=== PATIENT | female | born 1985 | race Hispanic/Latino ===

== ENCOUNTER 2017-08-18 12:24 | Emergency (ER) | payer OTHER, SELFPAY ==
[2017-08-18] MEDS ORDERED: predniSONE 20 MG TAB ONE (13:29)
--- NOTE | 2017-08-18 14:25 | RAD ---
PA AND LATERAL VIEWS OF CHEST: Date: 08/18/17 HISTORY: Dyspnea, cough, congestion, and wheezing. FINDINGS: Comparison made with exam of 05/18/17. The heart size is normal. The lungs are well expanded without focal areas of consolidation, pneumoth orax, or pleural effusions. No acute osseous abnormalities are seen. IMPRESSION: No radiographic evidence of acute cardiopulmonary process. POS: [facility]
== END 2017-08-18 15:39 | disposition home or self-care (01) ==
LOC: ERS 12:24
DX: J45.901 Unspecified asthma with (acute) exacerbation (principal); I10 Essential (primary) hypertension; E11.9 Type 2 diabetes mellitus without complications; F41.9 Anxiety disorder, unspecified; F32.9 Major depressive disorder, single episode, unspecified; Z87.891 Personal history of nicotine dependence; Z79.84 Long term (current) use of oral hypoglycemic drugs; Z79.899 Other long term (current) drug therapy
CPT/HCPCS: 71020; 94640; J7506; J7620

== ENCOUNTER 2017-08-29 06:13 | Emergency (ER) | payer SELFPAY ==
--- NOTE | 2017-08-29 08:06 | RAD ---
LEFT HIP TWO VIEWS: HISTORY: Left hip pain radiating down the leg. FINDINGS: No fracture, dislocation, or bony destruction is identified. POS: [facility]
[2017-08-29] MEDS ORDERED: Ketorolac Tromethamine 60 MG/2 ML VIAL ONE (08:17)
== END 2017-08-29 08:35 | disposition home or self-care (01) ==
LOC: ERS 06:13
DX: M70.72 Other bursitis of hip, left hip (principal); F32.9 Major depressive disorder, single episode, unspecified; F41.9 Anxiety disorder, unspecified; J45.909 Unspecified asthma, uncomplicated; E11.9 Type 2 diabetes mellitus without complications; Z79.84 Long term (current) use of oral hypoglycemic drugs; Z79.899 Other long term (current) drug therapy; Z87.891 Personal history of nicotine dependence
CPT/HCPCS: 96372; J1885

== ENCOUNTER 2017-10-12 15:42 | Emergency (ER) | payer SELFPAY ==
--- NOTE | 2017-10-12 17:36 | RAD ---
CHEST TWO VIEWS 10/12/17 HISTORY: Cough. Fever. COMPARISON: 08/18/17. FINDINGS: Normal cardiac silhouette. The pulmonary vessels and hilum are normal. Costophrenic angles are clear. Patchy interstitial opacities in the lung bases. Adequate aeration of the upper lungs. No pneumothor ax or osseous abnormalities. IMPRESSION: Patchy interstitial opacity in the lung bases. Bibasilar infiltrate is suspected. Continued surveilla nce. POS: [facility]
[2017-10-12] MEDS ORDERED: Albuterol Sulfate 2.5 mg/3 ml Neb ONE ×2 (18:23)
== END 2017-10-12 19:04 | disposition home or self-care (01) ==
LOC: ERS 15:42
DX: J18.9 Pneumonia, unspecified organism (principal); I10 Essential (primary) hypertension; E11.9 Type 2 diabetes mellitus without complications; J45.909 Unspecified asthma, uncomplicated; F41.9 Anxiety disorder, unspecified; F32.9 Major depressive disorder, single episode, unspecified; Z87.891 Personal history of nicotine dependence
CPT/HCPCS: 71020; 94640; J7611; J7620

== ENCOUNTER 2017-10-25 07:59 | Emergency (ER) | payer SELFPAY ==
--- NOTE | 2017-10-25 08:38 | RAD ---
EXAM: ONE VIEW CHEST HISTORY: Pneumonia. COMPARISON: 05/18/2017, 10/12/2017. FINDINGS: Normal cardiac silhouette. Pulmonary vessels and hilum are normal. No consolidation or mass. No pn eumothorax or osseous abnormalities. IMPRESSION: No acute cardiopulmonary process. POS: [facility]
[2017-10-25] MEDS ORDERED: methylPREDNISolone Sod Succ/PF 125 MG/2 ML VIAL ONE (10:10)
[2017-10-25] MEDS ORDERED: Water For Inject, Bacteriostat 30 ML ONE (10:10)
[2017-10-25] MEDS ORDERED: Magnesium Sulfate 2 GM/100 ML BAG ONE (10:10)
[2017-10-25 10:31] LABS: #Basophils 0.1 thou/uL (0.0-0.2); #Eosinphils 0.5 thou/uL (0.0-0.7); #Lymphocytes 3.1 thou/uL (1.20-3.40); #Monocytes 0.8 thou/uL (0.11-0.59); #Neutrophils 5.2 thou/uL (1.40-6.50); %Basophils 0.9 % (0.0-1.0); %Eosinophils 4.8 % (0.0-10.0); %Lymphocytes 31.9 % (21.0-51.0); %Monocytes 8.6 % (0.0-10.0); Mean Platelet Volume 7.6 fL (7.4-10.4); Red Blood Cell (RBC) Count 4.88 mill/uL (4.20-5.40); White Blood Cell (WBC) Count 9.7 thou/uL (4.8-10.8)
[2017-10-25 10:40] LABS: Anion Gap 12 mmol/L (10-20); BUN (Urea Nitrogen) 5 mg/dL (7.0-18.7); Calc. Creatinine Clearance 0 mL/min (70-130); Calcium 8.7 mg/dL (7.8-10.44); Carbon Dioxide 24 mmol/L (22-29); Chloride 103 mmol/L (98-107); Estimated GFR-MDRD 86
--- NOTE | 2017-10-28 22:07 | CON ---
ER CONSULTATION NOTE DATE OF CONSULTATION: 10/25/2017 REQUESTING PHYSICIAN: Dr. Celia Chavez. REASON FOR CONSULTATION: Fever and pneumonia. HISTORY OF PRESENT ILLNESS: Ms. Mackenzie is a 32-year-old female with history of diabetes, hypertensi on, asthma, anxiety and severe obesity, who presents to the Emergency Department for evaluation of fe olive at home. She states that she was diagnosed with pneumonia a while back. She got treated with azithromycin and seemed to get better, but the morning of presentation, had some increased shortness of breath and wh eezing and fever to 101-101.9 at home. She came to the Emergency Department for evaluation and was s atting 90% on room air. She received nebs, steroids and antibiotics, she was then satting well on ro om air and is 93% to 98% on room air. Her labs were normal, chest x-ray negative; however, a few wee ks ago, it did show I believe a left lower lobe infiltrate. She was concerned that her pneumonia may be coming back and was treated by being admitted. She denies any chest pain, no shortness of breath at present. No nausea or vomiting. She does have a lot of upper respiratory congestion. No headache or visual changes. PAST MEDICAL HISTORY: 1. Diabetes mellitus type 2. 2. Hypertension. 3. Asthma. 4. Trazodone. 5. Anxiety and depression. PAST SURGICAL HISTORY: Include wisdom teeth removal. HOME MEDICATIONS: 1. Symbicort 80/4.5 one puff daily. 2. Metformin 1000 mg p.o. b.i.d. 3. Lexapro 5 mg daily. 4. Glimepiride 10 mg daily. 5. Glipizide 5 mg daily. 6. Albuterol MDI p.r.n. 7. Janumet daily. 8. Tramadol 50 mg as needed. 9. Naproxen as needed. ALLERGIES: ENALAPRIL. FAMILY HISTORY: Negative for clotting or bleeding. No immune dysfunction, no early heart disease. SOCIAL HISTORY: History significant for cocaine and marijuana in the past, but has not had in over a year. She did used to smoke regular tobacco and uses rare alcohol. REVIEW OF SYSTEMS: A 10-point review of systems was performed, negative for all other systems except as stated per HPI. PHYSICAL EXAMINATION: VITAL SIGNS: Temperature 98.3, pulse 93, blood pressure 116/84, respiratory rate 16 and satting 93% on room air. GENERAL: She is awake. She is alert. She is oriented x3. She is a well-developed, obese white fem yennifer, who appears to be in no distress. HEENT: Normocephalic and atraumatic. Pupils are equal and reactive bilaterally, mucous members are moist. She has no thrush. She does have a significant postnasal drip and cobblestoning in the poste rior oropharynx. NECK: Supple. There is no lymphadenopathy, JVD or thyromegaly. LUNGS: Clear. She has good air movement. There is no prolonged expiratory phase. No wheezes. She has no crackles. CARDIOVASCULAR: She has normal cardiac and regular. She has normal S1 and S2. I do not appreciate murmurs. ABDOMEN: Obese. It is nontender and nondistended with good bowel sounds. She has no rebound, rigid ity or guarding. I cannot palpate internal organs. EXTREMITIES: Showed no cyanosis or clubbing. Trace pedal edema. SKIN: Warm, moist and well perfused. She has no rashes, no lesions. MUSCULOSKELETAL: Normal to inspection without any inflamed arthritic joints. She has no palpable ef fusions. NEUROLOGIC: Cranial nerves II-XII are grossly intact. She has 5/5 strength. She has normal speech. She has normal gait. She has no deficits. LABORATORY DATA: Basic metabolic profile shows sodium of 135, potassium 3.9, chloride 103, bicarb 24 , BUN 5, creatinine 0.77, glucose elevated at 327 and calcium of 8.7. CBC showed a white count of 9. 1, hemoglobin 15.3, hematocrit of 46.0 and platelets of 266,000. IMAGING DATA: The chest x-ray showed no acute cardiopulmonary disease. ASSESSMENT AND PLAN: 1. Upper respiratory infection. The patient has a significant postnasal drip and a posterior cobble stoning. 2. Acute asthma exacerbation, mild, and seems to be under very good control. 3. Diabetes mellitus type 2, with hyperglycemia. 4. Hypertension, controlled. 5. Anxiety/depression. I offered the patient options of either observation for steroids, nebs and antibiotics and watching o vernight, or to go home with oral antibiotics equivalent, home nebs. She has a nebulizer, plenty of medications, and oral steroids. When she learned that her labs are normal, she was not interested in staying and wanted to go home and follow up with her regular doctor in a few days. She was thus dis charged from the Emergency Department. I did give her prescriptions for prednisone 20 mg a day, Leva cindy 500 mg a day for 7 days, and she already had plenty of her medicines for her nebulizer.
== END 2017-10-25 14:15 | disposition home or self-care (01) ==
LOC: ERS 07:59
DX: J45.901 Unspecified asthma with (acute) exacerbation (principal)
CPT/HCPCS: 71010; 80048; 85025; 94640; 96374; 96375; J2930; J3475; J7620

== ENCOUNTER 2018-08-24 14:12 | Emergency (ER) | payer SELFPAY ==
[2018-08-24] MEDS ORDERED: predniSONE 20 MG TAB ONE (15:17)
== END 2018-08-24 17:33 | disposition home or self-care (01) ==
LOC: ERS 14:12
DX: J45.901 Unspecified asthma with (acute) exacerbation (principal); E11.9 Type 2 diabetes mellitus without complications; F41.9 Anxiety disorder, unspecified; F31.9 Bipolar disorder, unspecified; Z87.891 Personal history of nicotine dependence; I10 Essential (primary) hypertension; Z79.899 Other long term (current) drug therapy
CPT/HCPCS: 94640; 96360; 96361; J7506; J7620

== ENCOUNTER 2019-01-08 17:04 | Emergency (ER) | payer SELFPAY ==
[2019-01-08] MEDS ORDERED: predniSONE 20 MG TAB ONE (18:18)
[2019-01-08] MEDS ORDERED: Albuterol Sulfate 2.5 mg/3 ml Neb ONE (18:29)
== END 2019-01-08 19:20 | disposition home or self-care (01) ==
LOC: ERS 17:04
DX: J45.901 Unspecified asthma with (acute) exacerbation (principal); E11.9 Type 2 diabetes mellitus without complications; I10 Essential (primary) hypertension; F41.9 Anxiety disorder, unspecified; F31.9 Bipolar disorder, unspecified; Z87.442 Personal history of urinary calculi; F17.210 Nicotine dependence, cigarettes, uncomplicated
CPT/HCPCS: 94640; J7611; J7620

== ENCOUNTER 2019-01-25 13:47 | Emergency (ER) | payer SELFPAY ==
[2019-01-25 15:13] LABS: #Basophils 0.1 thou/uL (0.0-0.2); #Eosinphils 0.7 thou/uL (0.0-0.7); #Lymphocytes 2.9 thou/uL (1.20-3.40); #Monocytes 0.9 thou/uL (0.11-0.59); #Neutrophils 7.1 thou/uL (1.40-6.50); %Basophils 1.2 % (0.0-1.0); %Eosinophils 5.7 % (0.0-10.0); %Lymphocytes 24.7 % (21.0-51.0); %Monocytes 7.8 % (0.0-10.0); %Neutrophils 60.6 % (42.0-75.0); Hemoglobin 14.3 g/dL (12.0-16.0); Mean Corpuscular HGB CONC 33.7 g/dL (32.0-36.0); Mean Corpuscular Hemoglobin 32.4 pg (27.0-31.0); Mean Corpuscular Volume 96.2 fL (78.0-98.0); Mean Platelet Volume 7.9 fL (7.4-10.4); Platelet Count 237 thou/uL (130-400); RBC Distribution Width 11.5 % (11.5-14.5); Red Blood Cell (RBC) Count 4.41 mill/uL (4.20-5.40); White Blood Cell (WBC) Count 11.6 thou/uL (4.8-10.8)
[2019-01-25 15:36] LABS: ALT (SGPT) 14 U/L (8-55); AST (SGOT) 12 U/L (5-34); Albumin 3.6 g/dL (3.5-5.0); Alkaline Phosphatase 80 U/L (40-150); Anion Gap 11 mmol/L (10-20); BUN (Urea Nitrogen) 6 mg/dL (7.0-18.7); Bilirubin, Total 0.2 mg/dL (0.2-1.2); Calc. Creatinine Clearance 0 mL/min (70-130); Calcium 8.1 mg/dL (7.8-10.44); Carbon Dioxide 23 mmol/L (22-29); Chloride 108 mmol/L (98-107); Estimated GFR-MDRD 80; Globulin 2.4 g/dL (2.4-3.5); Glucose 380 mg/dL (70-105); Potassium 3.9 mmol/L (3.5-5.1); Sodium 138 mmol/L (136-145)
[2019-01-25] MEDS ORDERED: Dexamethasone 10 MG/ML VIAL ONE (17:17)
[2019-01-25] MEDS ORDERED: Albuterol Sulfate 2.5 mg/3 ml Neb ONE ×2 (17:19→17:22)
[2019-01-25 17:59] LABS: BHCG - Serum Negative (NEGATIVE); Pregs Control Background? CLEAR/WHITE (CLR/WHITE); Pregs Control Bar Appear? YES (CONTROL BAR)
--- NOTE | 2019-01-25 18:08 | RAD ---
CHEST ONE VIEW: 01/25/19 HISTORY: Shortness of breath and wheezing. COMPARISON: Radiograph 10/25/17. FINDINGS: Lungs are clear. No pneumothorax or effusion. The cardiac silhouette is similar. No acute osseous abn ormality. IMPRESSION: No acute intrathoracic abnormality. No change from 2017. POS: [facility]
== END 2019-01-25 19:24 | disposition home or self-care (01) ==
LOC: ERS 13:47
DX: M79.672 Pain in left foot (principal); M79.671 Pain in right foot; J45.901 Unspecified asthma with (acute) exacerbation; I10 Essential (primary) hypertension; J45.909 Unspecified asthma, uncomplicated; E11.9 Type 2 diabetes mellitus without complications; F17.210 Nicotine dependence, cigarettes, uncomplicated; F31.9 Bipolar disorder, unspecified; F41.9 Anxiety disorder, unspecified; Z87.442 Personal history of urinary calculi; Z79.899 Other long term (current) drug therapy
CPT/HCPCS: 36415; 71045; 80053; 83880; 84703; 85025; 93005; 94640; J1100; J7611

== ENCOUNTER 2019-02-23 00:02 | Emergency (ER) | payer SELFPAY | END 2019-02-23 00:32 | disposition home or self-care (01) | LOC: ERS 00:02 | DX: L03.311 Cellulitis of abdominal wall (principal); E11.9 Type 2 diabetes mellitus without complications; I10 Essential (primary) hypertension; J45.909 Unspecified asthma, uncomplicated; F31.9 Bipolar disorder, unspecified; F17.210 Nicotine dependence, cigarettes, uncomplicated | CPT/HCPCS: 99283 ==

== ENCOUNTER 2019-03-04 13:11 | Emergency (ER) | payer SELFPAY ==
[2019-03-04] MEDS ORDERED: predniSONE 20 MG TAB ONE (13:57)
== END 2019-03-04 14:45 | disposition home or self-care (01) ==
LOC: ERS 13:11
DX: J45.901 Unspecified asthma with (acute) exacerbation (principal); E11.9 Type 2 diabetes mellitus without complications; I10 Essential (primary) hypertension; F17.210 Nicotine dependence, cigarettes, uncomplicated; F31.9 Bipolar disorder, unspecified; F41.9 Anxiety disorder, unspecified; Z79.51 Long term (current) use of inhaled steroids
CPT/HCPCS: 94640; J7512; J7620

== ENCOUNTER 2019-03-24 12:35 | Emergency (ER) | payer SELFPAY ==
[2019-03-24] MEDS ORDERED: HYDROcodone/Acetaminophen 10/325 mg Tablet ONE (13:05)
== END 2019-03-24 13:22 | disposition home or self-care (01) ==
LOC: ERS 12:35
DX: M54.41 Lumbago with sciatica, right side (principal); E11.9 Type 2 diabetes mellitus without complications; I10 Essential (primary) hypertension; J45.909 Unspecified asthma, uncomplicated; F41.9 Anxiety disorder, unspecified; F31.9 Bipolar disorder, unspecified; F17.210 Nicotine dependence, cigarettes, uncomplicated
CPT/HCPCS: 99283

== ENCOUNTER 2019-05-17 15:01 | Emergency (ER) | payer SELFPAY | END 2019-05-17 18:01 | disposition home or self-care (01) | LOC: ERS 15:01 | DX: L02.211 Cutaneous abscess of abdominal wall (principal); H73.893 Other specified disorders of tympanic membrane, bilateral; E11.9 Type 2 diabetes mellitus without complications; I10 Essential (primary) hypertension; J45.909 Unspecified asthma, uncomplicated; Z87.442 Personal history of urinary calculi; F41.9 Anxiety disorder, unspecified; Z31.9 Encounter for procreative management, unspecified; F17.210 Nicotine dependence, cigarettes, uncomplicated; Z79.899 Other long term (current) drug therapy | CPT/HCPCS: 99282 ==

== ENCOUNTER 2019-06-16 16:56 | Emergency (ER) | payer SELFPAY ==
--- NOTE | 2019-06-16 17:19 | RAD ---
XR Chest 1 View Portable History: Shortness of breath Comparison: Radiograph January 2019 Findings: Lungs are clear. No pneumothorax or effusion. Cardiac silhouette and mediastinal contours a re within normal limits. Impression: No acute intrathoracic abnormality.
[2019-06-16 17:58] LABS: ALT (SGPT) 34 U/L (8-55); AST (SGOT) 29 U/L (5-34); Albumin 4.3 g/dL (3.5-5.0); Alkaline Phosphatase 82 U/L (40-150); Anion Gap 14 mmol/L (10-20); BUN (Urea Nitrogen) 9 mg/dL (7.0-18.7); Bilirubin, Total 0.4 mg/dL (0.2-1.2); CK (CPK) 118 U/L (29-168); Calc. Creatinine Clearance 0 mL/min (70-130); Calcium 9.1 mg/dL (7.8-10.44); Carbon Dioxide 22 mmol/L (22-29); Chloride 104 mmol/L (98-107); Estimated GFR-MDRD 87; Globulin 2.4 g/dL (2.4-3.5); Glucose 287 mg/dL (70-105); Protein, Total 6.7 g/dL (6.0-8.3); Sodium 136 mmol/L (136-145)
[2019-06-16 18:51] LABS: #Basophils 0.1 thou/uL (0.0-0.2); #Eosinphils 0.4 thou/uL (0.0-0.7); #Lymphocytes 3.6 thou/uL (1.20-3.40); #Monocytes 0.9 thou/uL (0.11-0.59); #Neutrophils 7.8 thou/uL (1.40-6.50); %Basophils 1.1 % (0.0-1.0); %Eosinophils 3.3 % (0.0-10.0); %Lymphocytes 27.8 % (21.0-51.0); %Monocytes 6.9 % (0.0-10.0); Hemoglobin 15.5 g/dL (12.0-16.0); Mean Corpuscular HGB CONC 34.9 g/dL (32.0-36.0); Mean Corpuscular Hemoglobin 32.1 pg (27.0-31.0); Mean Corpuscular Volume 91.8 fL (78.0-98.0); Mean Platelet Volume 8.2 fL (7.4-10.4); Platelet Count 261 thou/uL (130-400); RBC Distribution Width 11.8 % (11.5-14.5); Red Blood Cell (RBC) Count 4.84 mill/uL (4.20-5.40); White Blood Cell (WBC) Count 12.8 thou/uL (4.8-10.8)
[2019-06-16] MEDS ORDERED: Albuterol Sulfate 2.5 mg/3 ml Neb ONE (19:00)
[2019-06-16] MEDS ORDERED: predniSONE 20 MG TAB ONE (19:48)
== END 2019-06-16 19:51 | disposition home or self-care (01) ==
LOC: ERS 16:56
DX: J45.901 Unspecified asthma with (acute) exacerbation (principal); E11.9 Type 2 diabetes mellitus without complications; I10 Essential (primary) hypertension; F41.9 Anxiety disorder, unspecified; F31.9 Bipolar disorder, unspecified; F17.210 Nicotine dependence, cigarettes, uncomplicated; Z79.51 Long term (current) use of inhaled steroids
CPT/HCPCS: 36415; 71045; 80053; 82550; 84484; 85025; 93005; 94644; J7512; J7611; J7620

== ENCOUNTER 2019-08-19 21:03 | Emergency (ER) | payer SELFPAY ==
[2019-08-19 21:24] LABS: #Basophils 0.1 thou/uL (0.0-0.2); #Eosinphils 0.4 thou/uL (0.0-0.7); #Lymphocytes 2.8 thou/uL (1.20-3.40); #Monocytes 0.8 thou/uL (0.11-0.59); #Neutrophils 6.4 thou/uL (1.40-6.50); %Basophils 0.9 % (0.0-1.0); %Eosinophils 3.5 % (0.0-10.0); %Lymphocytes 27.1 % (21.0-51.0); %Monocytes 7.3 % (0.0-10.0); %Neutrophils 61.3 % (42.0-75.0); Hemoglobin 15.4 g/dL (12.0-16.0); Mean Corpuscular HGB CONC 34.5 g/dL (32.0-36.0); Mean Corpuscular Hemoglobin 32.2 pg (27.0-31.0); Mean Corpuscular Volume 93.5 fL (78.0-98.0); Mean Platelet Volume 7.9 fL (7.4-10.4); Platelet Count 270 thou/uL (130-400); RBC Distribution Width 11.1 % (11.5-14.5); Red Blood Cell (RBC) Count 4.77 mill/uL (4.20-5.40); White Blood Cell (WBC) Count 10.4 thou/uL (4.8-10.8)
--- NOTE | 2019-08-19 21:33 | RAD ---
EXAM: Chest one view: HISTORY: Chest pain COMPARISON: 06/16/2019 FINDINGS: Heart size: Within normal limits. Lungs: Clear of acute process. No evidence for pneumonia, pleural effusion, acute edema, or pneumothorax, or other significant acute process. IMPRESSION: No significant acute intrathoracic disease. Stable exam.
[2019-08-19 21:44] LABS: ALT (SGPT) 38 U/L (8-55); AST (SGOT) 36 U/L (5-34); Albumin 4.1 g/dL (3.5-5.0); Alkaline Phosphatase 77 U/L (40-110); Anion Gap 13 mmol/L (10-20); BUN (Urea Nitrogen) 11 mg/dL (7.0-18.7); Bilirubin, Total 0.6 mg/dL (0.2-1.2); CK (CPK) 295 U/L (29-168); Calc. Creatinine Clearance 0 mL/min (70-130); Calcium 8.6 mg/dL (7.8-10.44); Carbon Dioxide 24 mmol/L (22-29); Chloride 104 mmol/L (98-107); Estimated GFR-MDRD 85; Globulin 2.7 g/dL (2.4-3.5); Glucose 331 mg/dL (70-105); Potassium 3.7 mmol/L (3.5-5.1); Protein, Total 6.8 g/dL (6.0-8.3); Sodium 137 mmol/L (136-145)
== END 2019-08-19 23:31 | disposition home or self-care (01) ==
LOC: ERS 21:03
DX: R07.9 Chest pain, unspecified (principal); R11.10 Vomiting, unspecified; E11.9 Type 2 diabetes mellitus without complications; I10 Essential (primary) hypertension; J45.909 Unspecified asthma, uncomplicated; Z87.442 Personal history of urinary calculi; F41.9 Anxiety disorder, unspecified; F31.9 Bipolar disorder, unspecified; F17.210 Nicotine dependence, cigarettes, uncomplicated; Z79.51 Long term (current) use of inhaled steroids; Z79.899 Other long term (current) drug therapy
CPT/HCPCS: 71045; 80053; 82550; 84484; 85025; 93005; 96360

== ENCOUNTER 2019-11-13 02:32 | Emergency (ER) | payer SELFPAY ==
[2019-11-13 03:01] LABS: Bilirubin Negative (Negative); Blood, Urine Negative (Negative); Clarity Clear (Clear); Glucose, Urine (Dipstick) Greater than 1000 mg/dL (Negative); Leukocyte Negative Leu/uL (Negative); Nitrite Negative (Negative); Protein, Urine (Dipstick) Negative (Neg-Trace); Urobilinogen Normal mg/dL (Less than 2)
== END 2019-11-13 03:33 | disposition home or self-care (01) ==
LOC: ERS 02:32
DX: O20.9 Hemorrhage in early pregnancy, unspecified (principal); E11.9 Type 2 diabetes mellitus without complications; I10 Essential (primary) hypertension; J45.909 Unspecified asthma, uncomplicated; F31.9 Bipolar disorder, unspecified; F41.9 Anxiety disorder, unspecified; F17.210 Nicotine dependence, cigarettes, uncomplicated; Z79.51 Long term (current) use of inhaled steroids; Z3A.00 Weeks of gestation of pregnancy not specified
CPT/HCPCS: 81003; 99281

== ENCOUNTER 2019-11-21 09:34 | Emergency (ER) | payer SELFPAY | END 2019-11-21 11:46 | disposition home or self-care (01) | LOC: ERS 09:34 | DX: J45.901 Unspecified asthma with (acute) exacerbation (principal); E11.9 Type 2 diabetes mellitus without complications; I10 Essential (primary) hypertension; F41.9 Anxiety disorder, unspecified; F31.9 Bipolar disorder, unspecified; F17.210 Nicotine dependence, cigarettes, uncomplicated; Z87.442 Personal history of urinary calculi | CPT/HCPCS: 99282 ==

== ENCOUNTER 2019-12-05 08:47 | Emergency (ER) | payer SELFPAY ==
[2019-12-05] MEDS ORDERED: predniSONE 20 MG TAB ONE (10:37)
[2019-12-05] MEDS ORDERED: Ibuprofen 800 MG TAB ONE (10:37)
== END 2019-12-05 11:17 | disposition home or self-care (01) ==
LOC: ERS 08:47
DX: J45.901 Unspecified asthma with (acute) exacerbation (principal); E11.9 Type 2 diabetes mellitus without complications; I10 Essential (primary) hypertension; F41.9 Anxiety disorder, unspecified; F31.9 Bipolar disorder, unspecified; F17.210 Nicotine dependence, cigarettes, uncomplicated; Z87.442 Personal history of urinary calculi; Z79.51 Long term (current) use of inhaled steroids
CPT/HCPCS: 87081; 87430; 94640; J7512; J7620

== ENCOUNTER 2020-03-17 00:37 | Emergency (ER) | payer SELFPAY ==
[2020-03-17 01:20] LABS: #Basophils 0.1 thou/uL (0.0-0.2); #Eosinphils 0.5 thou/uL (0.0-0.7); #Lymphocytes 1.9 thou/uL (1.20-3.40); #Monocytes 1.2 thou/uL (0.11-0.59); #Neutrophils 10.6 thou/uL (1.40-6.50); %Basophils 0.7 % (0.0-1.0); %Eosinophils 3.3 % (0.0-10.0); %Lymphocytes 13.6 % (21.0-51.0); %Monocytes 8.1 % (0.0-10.0); %Neutrophils 74.3 % (42.0-75.0); Hemoglobin 15.7 g/dL (12.0-16.0); Mean Corpuscular HGB CONC 34.9 g/dL (32.0-36.0); Mean Corpuscular Hemoglobin 33.1 pg (27.0-31.0); Mean Corpuscular Volume 94.7 fL (78.0-98.0); Mean Platelet Volume 8.5 fL (7.4-10.4); Platelet Count 264 thou/uL (130-400); RBC Distribution Width 11.8 % (11.5-14.5); Red Blood Cell (RBC) Count 4.74 mill/uL (4.20-5.40); White Blood Cell (WBC) Count 14.3 thou/uL (4.8-10.8)
[2020-03-17 01:26] LABS: Bilirubin Negative (Negative); Blood, Urine Negative (Negative); Clarity Clear (Clear); Glucose, Urine (Dipstick) Greater than 1000 mg/dL (Negative); Leukocyte 25 Leu/uL (Negative); Nitrite 2+ (Negative); Protein, Urine (Dipstick) Negative (Neg-Trace); Urobilinogen Normal mg/dL (Less than 2)
[2020-03-17 01:27] LABS: Bacteria/HPF 1+ HPF (None Seen)
[2020-03-17 01:27] LABS: BHCG - Serum Negative (NEGATIVE); Pregs Control Background? CLEAR/WHITE (CLR/WHITE); Pregs Control Bar Appear? YES (CONTROL BAR)
[2020-03-17 01:41] LABS: ALT (SGPT) 22 U/L (8-55); AST (SGOT) 16 U/L (5-34); Albumin 3.7 g/dL (3.5-5.0); Alkaline Phosphatase 103 U/L (40-110); Anion Gap 16 mmol/L (10-20); BUN (Urea Nitrogen) 7 mg/dL (7.0-18.7); Bilirubin, Total 0.3 mg/dL (0.2-1.2); Calc. Creatinine Clearance 0 mL/min (70-130); Calcium 8.1 mg/dL (7.8-10.44); Carbon Dioxide 19 mmol/L (22-29); Chloride 105 mmol/L (98-107); Estimated GFR-MDRD 87; Globulin 2.7 g/dL (2.4-3.5); Glucose 344 mg/dL (70-105); Potassium 3.7 mmol/L (3.5-5.1); Protein, Total 6.4 g/dL (6.0-8.3); Sodium 136 mmol/L (136-145)
[2020-03-17] MEDS ORDERED: Ondansetron PF 4 MG/2 ML Vial ONE (02:54)
[2020-03-17] MEDS ORDERED: Ketorolac Tromethamine 30 MG/ML VIAL ONE (02:55)
--- NOTE | 2020-03-17 08:06 | ULT ---
PRELIMINARY REPORT/[facility]/EMERGENCY AFTER HOURS PROCEDURE EXAM: US Pelvis, Complete. CLINICAL HISTORY: HX: PELVIC PAIN. SEE NOTES ON LAST IMAGE. THANKS TECHNIQUE: Transvaginal pelvic ultrasound (complete) with image documentation. COMPARISON: None provided. FINDINGS: ENDOMETRIUM: Normal thickness. UTERUS/CERVIX: Normal size and contour. No fibroid detected. RIGHT OVARY: 4.4 cm right ovarian cyst. Normal blood flow. LEFT OVARY: Limited visualization of the left ovary due to location of the ovary which appears normal in size but unable to evaluate Doppler flow due to location. FREE FLUID: No free fluid. IMPRESSION: 4.4 cm right ovarian cyst. Normal blood flow visualized within the right ovary. Limited visualization of the left ovary due to location of the ovary which appears normal in size but unable to evaluate Doppler flow due to location. ELECTRONICALLY SIGNED BY: Criss Jack MD March 17, 2020 2:32:11 AM CDT FINAL REPORT TRANSVAGINAL ULTRASOUND WITH BENSON SCALE AND COLOR FLOW AND SPECTRAL DOPPLER IMAGING: I agree with the preliminary report given by Dr. Criss Jack of [facility]. POS: [facility]
--- NOTE | 2020-03-17 08:22 | CT ---
PRELIMINARY REPORT/[facility]/EMERGENCY AFTER HOURS PROCEDURE EXAM: CT Abdomen and Pelvis with Intravenous Contrast CLINICAL HISTORY: Patient here for evaluation of left lower quadrant pain that started Tuesday. Has been intermittent but has become more constant. Patient states that is not as intense right now. Stat es that she is having some nausea vomiting. Last episode of vomiting was around 10 PM. Denies any his tory of ovarian cysts. States that she did have similar pain earlier this year. Does have an appointm ent with her primary care doctor this morning. Denies any fevers. Is having some dysuria. Denies any radiation of the pain. Pain is sharp. TECHNIQUE: Axial computed tomography images of the abdomen and pelvis with intravenous contrast. CONTRAST: With; ISOVUE 370,100mL COMPARISON: US - US PELVIC TRANSVAG - 03/17/2020 01:49 AM CDT FINDINGS: LUNG BASES: No basilar airspace consolidation or pleural effusion. LIVER: The right hepatic lobe is enlarged measuring up to 21.4 cm in craniocaudal dimension. GALLBLADDER AND BILE DUCTS: Unremarkable. No calcified stone. No ductal dilation. PANCREAS: Unremarkable. SPLEEN: Unremarkable. ADRENAL GLANDS: Unremarkable. KIDNEYS, URETERS, AND BLADDER: Unremarkable. No hydronephrosis or nephrolithiasis. No ureteral or jared dder calculi. STOMACH AND BOWEL: No obstruction. No wall thickening. No CT evidence of colitis or acute diverticuli tis. APPENDIX: No CT evidence for appendicitis. PERITONEUM: No free fluid. No free air. LYMPH NODES: No lymphadenopathy. REPRODUCTIVE: 4.5 cm right ovarian cyst. VASCULATURE: No aortic aneurysm. BONES: No fracture or suspicious osseous abnormality. ABDOMINAL WALL AND SOFT TISSUES: Unremarkable. IMPRESSION: No acute intra-abdominal or pelvic abnormality. 4.5 cm right ovarian cyst, better seen on recent pelvic ultrasound. Mild hepatomegaly. ELECTRONICALLY SIGNED BY: Criss Jack MD March 17, 2020 3:30:48 AM CDT FINAL REPORT CT ABDOMEN AND PELVIS WITH IV CONTRAST: I agree with the preliminary report given by Dr. Criss Jack of [facility]. POS: [facility]
[2020-03-17] MEDS ORDERED: Iopamidol 370 76% 100 ML VIAL ONE (09:20)
== END 2020-03-17 03:50 | disposition home or self-care (01) ==
LOC: ERS 00:37
DX: R10.32 Left lower quadrant pain (principal); R00.0 Tachycardia, unspecified; F17.210 Nicotine dependence, cigarettes, uncomplicated; F41.9 Anxiety disorder, unspecified; F31.9 Bipolar disorder, unspecified; E11.9 Type 2 diabetes mellitus without complications; I10 Essential (primary) hypertension; J45.909 Unspecified asthma, uncomplicated; Z87.442 Personal history of urinary calculi; Z79.899 Other long term (current) drug therapy; Z79.84 Long term (current) use of oral hypoglycemic drugs
CPT/HCPCS: 36415; 74177; 76856; 80053; 81003; 81015; 84703; 85025; 96361; 96374; 96375; J1885; J2405; Q9967

== ENCOUNTER 2020-04-10 16:33 | Emergency (ER) | payer SELFPAY ==
--- NOTE | 2020-04-10 16:56 | RAD ---
Chest one view HISTORY: Chest pain. Dyspnea. COMPARISON: 08/19/2019. FINDINGS: Cardiac silhouette and pulmonary vasculature are unremarkable. Mediastinum is midline. No l obar consolidation or evidence of pneumothorax. IMPRESSION : No active cardiopulmonary abnormalities are demonstrated.
[2020-04-10 17:02] LABS: #Basophils 0.1 thou/uL (0.0-0.2); #Eosinphils 0.2 thou/uL (0.0-0.7); #Lymphocytes 2.9 thou/uL (1.20-3.40); #Monocytes 1.1 thou/uL (0.11-0.59); %Basophils 0.9 % (0.0-1.0); %Eosinophils 1.4 % (0.0-10.0); %Lymphocytes 22.1 % (21.0-51.0); %Monocytes 8.3 % (0.0-10.0); %Neutrophils 67.4 % (42.0-75.0); Hemoglobin 16.3 g/dL (12.0-16.0); Mean Corpuscular HGB CONC 33.8 g/dL (32.0-36.0); Mean Corpuscular Hemoglobin 31.5 pg (27.0-31.0); Mean Platelet Volume 8.5 fL (7.4-10.4); Platelet Count 242 thou/uL (130-400); RBC Distribution Width 11.7 % (11.5-14.5); Red Blood Cell (RBC) Count 5.17 mill/uL (4.20-5.40); White Blood Cell (WBC) Count 13.3 thou/uL (4.8-10.8)
[2020-04-10 17:04] LABS: BHCG - Serum Negative (NEGATIVE); Pregs Control Background? CLEAR/WHITE (CLR/WHITE); Pregs Control Bar Appear? YES (CONTROL BAR)
[2020-04-10 17:27] LABS: ALT (SGPT) 34 U/L (8-55); AST (SGOT) 31 U/L (5-34); Albumin 4.2 g/dL (3.5-5.0); Alkaline Phosphatase 65 U/L (40-110); Anion Gap 15 mmol/L (10-20); BUN (Urea Nitrogen) 13 mg/dL (7.0-18.7); Bilirubin, Total 0.8 mg/dL (0.2-1.2); CK (CPK) 133 U/L (29-168); Calc. Creatinine Clearance 0 mL/min (70-130); Calcium 8.4 mg/dL (7.8-10.44); Carbon Dioxide 16 mmol/L (22-29); Chloride 104 mmol/L (98-107); Estimated GFR-MDRD 71; Globulin 2.6 g/dL (2.4-3.5); Glucose 345 mg/dL (70-105); Potassium 4.2 mmol/L (3.5-5.1); Protein, Total 6.8 g/dL (6.0-8.3); Sodium 131 mmol/L (136-145)
--- NOTE | 2020-04-12 12:08 | EKG ---
Test Reason : Blood Pressure : / mmHG Vent. Rate : 108 BPM Atrial Rate : 108 BPM P-R Int : 118 ms QRS Dur : 076 ms QT Int : 342 ms P-R-T Axes : 027 -06 017 degrees QTc Int : 458 ms Sinus tachycardia Otherwise normal ECG Confirmed by ARACELI SMITH DO ([id number]), avid editor JOSE GERMAN ([id number]) on 04/12/2020 12:07:54 PM Referred By: Confirmed By:ARACELI SMITH DO
== END 2020-04-10 19:07 | disposition home or self-care (01) ==
LOC: ERS 16:33
DX: E11.65 Type 2 diabetes mellitus with hyperglycemia (principal); E86.0 Dehydration; R00.2 Palpitations; J45.909 Unspecified asthma, uncomplicated; F31.9 Bipolar disorder, unspecified; F41.9 Anxiety disorder, unspecified; F17.210 Nicotine dependence, cigarettes, uncomplicated; Z79.51 Long term (current) use of inhaled steroids; Z79.899 Other long term (current) drug therapy
CPT/HCPCS: 36415; 71045; 80053; 82550; 84443; 84484; 84703; 85025; 85379; 93005; 96360; 96361

== ENCOUNTER 2020-05-18 10:51 | Emergency (ER) | payer MEDICAID, SELFPAY ==
[2020-05-18 12:09] LABS: Bacteria/HPF 3+ HPF (None Seen); Bilirubin Negative (Negative); Blood, Urine Negative (Negative); Clarity Turbid (Clear); Glucose, Urine (Dipstick) Greater than 1000 mg/dL (Negative); Ketone, Urine Negative (Negative); Leukocyte Negative Leu/uL (Negative); Nitrite 2+ (Negative); Protein, Urine (Dipstick) Negative (Neg-Trace); RBC/HPF 0-3 HPF (0-3); Specific Gravity, Urine 1.028 (1.002-1.036); Squamous Epithelial 21-50 HPF (0-3); Urobilinogen Normal mg/dL (Less than 2); WBC/HPF 0-3 HPF (0-3); pH, Urine 5.5 (5.0-9.0)
--- NOTE | 2020-05-18 12:24 | RAD ---
SACRUM AND COCCYX THREE VIEWS: HISTORY: Pain following an injury. FINDINGS: No evidence for acute fracture or dislocation. If the patient has persistent or worsening nonresolving sacral or coccyx pain, follow-up MRI study is recommended for further assessment on a non-emergent basis. POS: [facility]
[2020-05-18 12:34] LABS: Pregnancy Test - Urine (BHCG) Negative (Negative); Pregu Control Background? CLEAR/WHITE (CLR/WHITE); Pregu Control Bar Appear? YES (CONTROL BAR); Specific Gravity 1.028 (1.002-1.036)
[2020-05-18] MEDS ORDERED: Ketorolac Tromethamine 30 MG/ML VIAL ONE (12:43)
== END 2020-05-18 13:40 | disposition home or self-care (01) ==
LOC: ERS 10:51
DX: S30.0XXA Contusion of lower back and pelvis, initial encounter (principal); E11.9 Type 2 diabetes mellitus without complications; I10 Essential (primary) hypertension; F31.9 Bipolar disorder, unspecified; F41.9 Anxiety disorder, unspecified; F17.210 Nicotine dependence, cigarettes, uncomplicated; Z79.899 Other long term (current) drug therapy; W01.0XXA Fall on same level from slipping, tripping and stumbling without subsequent striking against object, initial encounter
CPT/HCPCS: 72220; 81003; 81015; 81025; 87077; 87086; 87186; 96372; J1885

== ENCOUNTER 2020-12-05 19:58 | Emergency (ER) | payer MEDICAID, SELFPAY | END 2020-12-05 23:25 | disposition home or self-care (01) | LOC: ERS 19:58 | DX: S62.636D Displaced fracture of distal phalanx of right little finger, subsequent encounter for fracture with routine healing (principal); E11.9 Type 2 diabetes mellitus without complications; I10 Essential (primary) hypertension; J45.909 Unspecified asthma, uncomplicated; F17.210 Nicotine dependence, cigarettes, uncomplicated ==

== ENCOUNTER 2021-08-08 11:54 | Emergency (ER) | payer OTHER, SELFPAY ==
[2021-08-08] MEDS ORDERED: traMADol HCl 50 MG TAB ONE (13:16)
== END 2021-08-08 13:31 | disposition home or self-care (01) ==
LOC: ERS 11:54
DX: S90.112A Contusion of left great toe without damage to nail, initial encounter (principal); S90.31XA Contusion of right foot, initial encounter; E11.9 Type 2 diabetes mellitus without complications; J45.909 Unspecified asthma, uncomplicated; F17.210 Nicotine dependence, cigarettes, uncomplicated; W01.0XXA Fall on same level from slipping, tripping and stumbling without subsequent striking against object, initial encounter

== ENCOUNTER 2021-08-31 01:33 | Emergency (ER) | payer SELFPAY ==
[2021-08-31 02:04] LABS: Bilirubin Negative (Negative); Blood, Urine Negative (Negative); Clarity Clear (Clear); Glucose, Urine (Dipstick) Greater than 1000 mg/dL (Negative); Ketone, Urine Negative (Negative); Leukocyte Negative Leu/uL (Negative); Nitrite Negative (Negative); Protein, Urine (Dipstick) Negative (Neg-Trace); Specific Gravity, Urine 1.021 (1.002-1.036); Urobilinogen Normal mg/dL (Less than 2)
[2021-08-31 02:05] LABS: Pregnancy Test - Urine (BHCG) Negative (Negative); Pregu Control Background? CLEAR/WHITE (CLR/WHITE); Pregu Control Bar Appear? YES (CONTROL BAR); Specific Gravity 1.021 (1.002-1.036)
[2021-08-31 02:10] LABS: Amphetamine Detected (NotDetected); Barbiturates Screen Not Detected (NotDetected); Benzodiazepine Screen Not Detected (NotDetected); Cocaine Metabolite Screen Not Detected (NotDetected); Methadone Not Detected (NotDetected); Methamphetamine Detected (NotDetected); Opiate Screen Not Detected (NotDetected); Oxycodone Screen Not Detected (NotDetected); Phencyclidine (PCP) Not Detected (NotDetected); THC/Cannabinoid Screen Not Detected (NotDetected); Tricyclic Screen Not Detected (NotDetected)
[2021-08-31 02:23] LABS: #Basophils 0.1 thou/uL (0.0-0.2); #Eosinphils 0.1 thou/uL (0.0-0.7); #Lymphocytes 3.2 thou/uL (1.20-3.40); #Monocytes 0.8 thou/uL (0.11-0.59); %Basophils 1.4 % (0.0-1.0); %Eosinophils 1.3 % (0.0-10.0); %Lymphocytes 34.5 % (21.0-51.0); %Monocytes 8.4 % (0.0-10.0); %Neutrophils 54.4 % (42.0-75.0); Hemoglobin 15.7 g/dL (12.0-16.0); Mean Corpuscular Hemoglobin 32.9 pg (27.0-31.0); Mean Corpuscular Volume 91.4 fL (78.0-98.0); Mean Platelet Volume 7.6 fL (7.4-10.4); Platelet Count 307 thou/uL (130-400); RBC Distribution Width 11.9 % (11.5-14.5); Red Blood Cell (RBC) Count 4.79 mill/uL (4.20-5.40); White Blood Cell (WBC) Count 9.2 thou/uL (4.8-10.8)
[2021-08-31 02:42] LABS: Acetaminophen Less than 6.0 mcg/mL (10.0-30.0); Alcohol Less than 10 mg/dL (Less than 10); Salicylate Less than 8.0 mg/dL (15.0-30.0)
[2021-08-31 02:42] LABS: ALT (SGPT) 21 U/L (8-55); AST (SGOT) 19 U/L (5-34); Alkaline Phosphatase 82 U/L (40-110); Anion Gap 14 mmol/L (10-20); BUN (Urea Nitrogen) 8 mg/dL (7.0-18.7); Bilirubin, Total 0.3 mg/dL (0.2-1.2); CK (CPK) 406 U/L (29-168); Calc. Creatinine Clearance 0 mL/min (70-130); Calcium 8.7 mg/dL (7.8-10.44); Carbon Dioxide 20 mmol/L (22-29); Chloride 106 mmol/L (98-107); Globulin 2.8 g/dL (2.4-3.5); Glucose 268 mg/dL (70-105); Potassium 4.2 mmol/L (3.5-5.1); Protein, Total 6.8 g/dL (6.0-8.3); Sodium 136 mmol/L (136-145)
== END 2021-08-31 04:03 | disposition home or self-care (01) ==
LOC: ERS 01:33
DX: R45.851 Suicidal ideations (principal); Z79.899 Other long term (current) drug therapy; E11.9 Type 2 diabetes mellitus without complications; I10 Essential (primary) hypertension; J45.909 Unspecified asthma, uncomplicated; F17.210 Nicotine dependence, cigarettes, uncomplicated
CPT/HCPCS: 36415; 80053; 80306; 80307; 81003; 81025; 82550; 84443; 85025; 99284